=== PATIENT | male | born 1950 | race Caucasian/White ===

== ENCOUNTER 2018-01-30 06:44 | Emergency (ER) | END 2018-01-30 09:10 | disposition home or self-care (01) ==

== ENCOUNTER 2018-01-31 21:35 | Emergency (ER) | END 2018-02-01 00:35 | disposition home or self-care (01) ==

== ENCOUNTER 2018-03-21 06:06 | Emergency (ER) | END 2018-03-21 08:31 | disposition home or self-care (01) ==